=== PATIENT | male | born 2000 | race Caucasian/White ===

== ENCOUNTER 2024-07-21 19:51 | Emergency (ER) | payer BC ==
[~2024-07-21] VITALS: Ht 177.8 cm; Wt 74.1 kg
[2024-07-21 19:59] VITALS: TEMP 98.4
[2024-07-21 23:11] LABS: BASO % 0.5 % (0.0-2.0); EOS # 0.2 K/mm3 (0.0-0.7); EOS % 2.9 % (0.0-4.0); GRAN # 3.9 K/mm3 (1.4-6.5); HEMATOCRIT 45.5 % (42.0-52.0); HEMOGLOBIN 15.1 g/dl (13.5-18.0); MEAN CELL VOLUME 86 fl (80.0-100.0); MEAN CORPUSCULAR HEMOGLOBIN 29 pg (27-31); MEAN CORPUSCULAR HGB CONC 33 g/dl (33.0-37.0); MEAN PLATELET VOLUME 10.8 fl (7.4-10.4); MONO # 0.5 K/mm3 (0.1-0.6); MONO % 6.2 % (1.7-9.3); PLATELET COUNT 218 K/mm3 (130-400); RED BLOOD COUNT 5.27 M/mm3 (4.20-5.60); REDCELL DISTRIBUTION WIDTH-CV 12.5 % (11.5-14.5)
[2024-07-21 23:32] LABS: ALBUMIN 4.4 g/dL (3.5-5.0); BILIRUBIN,TOTAL 0.3 mg/dL (0.2-1.2); CALCIUM 9.6 mg/dL (8.4-10.2); CREATININE, serum 0.97 mg/dL (0.72-1.25); POTASSIUM 3.7 mEq/L (3.5-4.5)
[2024-07-22 01:46] VITALS: BP 132/92; PULSE 70
== END 2024-07-22 01:45 | disposition home or self-care (01) ==
LOC: COL.ER 19:51
PROVIDERS: Physician Assistant
DX: K92.1 Melena (principal)